=== PATIENT | female | born 1990 | race African-American/Black ===

== ENCOUNTER 2019-02-19 02:33 | Inpatient (IN) | payer MEDICAID, OTHER ==
[~2019-02-19] VITALS: Ht 165.1 cm; Wt 117.9 kg
[~2019-02-19 02:33] MED LIST: ADVAIR 100-501 EACH INH; ALBUTEROL SULF8.5 GM INH; ALBUTEROL2.5 MG/3 M INH; FUROSEMIDE20 M1 ORAL; IRON159 MG PO; NAPROXEN375 MG ORAL; ONDANSETRON ODT4 MG ORAL; PREDNISONE20 MG ORAL; PREDNISONE50 MG ORAL
[2019-02-19 02:44] VITALS: BP 158/86
[2019-02-19] MEDS: Albuterol ud Inhalation HHN SCH ×3 (02:59→03:30)
[2019-02-19] MEDS: Ipratropium 0.02% Inh Soln 2.5ml UD HHN SCH ×3 (02:59→03:30)
[2019-02-19] MEDS ORDERED: Solu-MEDROL 125mg Inj IVP ONE (03:00)
[2019-02-19 03:30] LABS: HEMATOCRIT 25.4 % (37.0-47.0); HEMOGLOBIN 7.9 G/DL (12.0-16.0); MEAN CORPUSCULAR VOLUME 73 FL (80-99); PLATELET COUNT 243 K/UL (150-450); RED BLOOD COUNT 3.48 M/UL (4.20-5.40); RED CELL DISTRIBUTION WIDTH 18.8 % (11.6-14.8)
[2019-02-19 03:43] LABS: APPEARANCE,URINE CLEAR; BILIRUBIN, URINE NEGATIVE (NEGATIVE); GLUCOSE, URINE (UA) NEGATIVE (NEGATIVE); KETONES,URINE NEGATIVE (NEGATIVE); LEUKOCYTE ESTERASE ,URINE 1+ (NEGATIVE); NITRITE,URINE NEGATIVE (NEGATIVE); PH,URINE 8 (4.5-8.0); PROTEIN,URINE NEGATIVE (NEGATIVE); UROBILINOGEN,URINE 1 MG/DL (0.0-1.0)
[2019-02-19 03:50] LABS: COLOR,URINE YELLOW
[2019-02-19 03:56] LABS: ANION GAP 10 mmol/L (5-15); BLOOD UREA NITROGEN 5 mg/dL (7-18); CALCIUM 8.2 MG/DL (8.5-10.1); CARBON DIOXIDE 27 MMOL/L (21-32); CHLORIDE 104 MMOL/L (98-107); CREATININE 0.8 MG/DL (0.55-1.30); POTASSIUM 4.1 MMOL/L (3.5-5.1); SODIUM 141 MMOL/L (136-145)
[2019-02-19 04:09] LABS: ALANINE AMINOTRANSFERASE 29 U/L (12-78); ALBUMIN 2.9 G/DL (3.4-5.0); ALBUMIN/GLOBULIN RATIO 0.8 (1.0-2.7); ALKALINE PHOSPHATASE 89 U/L (46-116); ASPARTATE AMINO TRANSFERASE 29 U/L (15-37); BILIRUBIN,TOTAL 0.7 MG/DL (0.2-1.0)
--- NOTE | 2019-02-19 04:12 | Emergency Room Report ---
History of Present Illness General Chief Complaint: Asthma Source: Patient Present Illness HPI 29-year-old female presents to ED complaining of wheezing and shortness of breath for the last 3 hours. History of asthma. States her inhaler is not helping. Also notes leg swelling 1 day. States she has history of CHF and takes Lasix. Denies fevers or chills. Denies chest pain. No other aggravating relieving factors. Denies any other associated symptoms Allergies: Coded Allergies: No Known Allergies (Unverified , 09/26/13) Patient History Past Medical History: HTN, CHF, asthma Past Surgical History: none Pertinent Family History: none Social History: Denies: smoking, alcohol use, drug use Last Menstrual Period: Feb 04 2019 Now: No Immunizations: UTD Reviewed Nursing Documentation: PMH: Agreed; PSxH: Agreed Nursing Documentation-PMH Hx Hypertension: Yes Hx Asthma: Yes Review of Systems All Other Systems: negative except mentioned in HPI Physical Exam Vital Signs Date Time Temp Pulse Resp B/P (MAP) Pulse Ox O2 Delivery O2 Flow Rate FiO2 02/19/19 02:38 99.1 104 22 158/86 99 Room Air 02/19/19 03:00 21 Sp02 EP Interpretation: reviewed, normal General Appearance: alert, GCS 15, non-toxic, mild distress, obese Head: normocephalic, atraumatic Eyes: bilateral eye normal inspection, bilateral eye PERRL ENT: hearing grossly normal, normal pharynx, no angioedema, normal voice Neck: full range of motion, supple/symm/no masses Respiratory: chest non-tender, normal breath sounds, speaking full sentences, wheezing Cardiovascular #1: regular rate, rhythm, no edema Cardiovascular #2: 2+ carotid (R), 2+ carotid (L), 2+ radial (R), 2+ radial (L) , 2+ dorsalis pedis (R), 2+ dorsalis pedis (L) Gastrointestinal: normal bowel sounds, non tender, soft, non-distended, no guarding, no rebound Rectal: deferred Genitourinary: normal inspection, no CVA tenderness Musculoskeletal: back normal, gait/station normal, normal range of motion, swelling - 2+ pitting edema b/l LEs Neurologic: alert, oriented x3, responsive, motor strength/tone normal, sensory intact, speech normal Psychiatric: judgement/insight normal, memory normal, mood/affect normal, no suicidal/homicidal ideation Reflexes: 3+ bicep (R), 3+ bicep (L), 3+ tricep (R), 3+ tricep (L), 3+ knee (R) , 3+ knee (L) Skin: normal color, no rash, warm/dry, well hydrated Lymphatic: no adenopathy Medical Decision Making Diagnostic Impression: Primary Impression: Asthma exacerbation Qualified Codes: J45.901 - Unspecified asthma with (acute) exacerbation Additional Impressions: CHF exacerbation Qualified Codes: I50.9 - Heart failure, unspecified Hypertension Qualified Codes: I10 - Essential (primary) hypertension ER Course Hospital Course 29-year-old female presents ED complaining of leg swelling and shortness of breath with wheezing. History of asthma and CHF Differential diagnoses include: NC/unstable angina, pneumonia, CHF Clinical course Patient placed on stretcher. on cardiac/vascular sonographer. After initial history and physical I ordered labs, EKG, chest x-ray, nebulizer treatments, solumedrol labs reviewed- no leukocytosis, hemoglobin/hematocrit stable, electrolytes ok, trop negative, BNP elevated EKG - NSR no acute ischemic changes interpreted by me Chest x-ray- cardiomegaly, interstitial congestion On reassessment patient states wheezing is somewhat improved but still feels short of breath. Likely component of CHF as well. Patient has pronounced leg swelling despite being on Lasix. Blood pressure also elevated. Given clonidine. Given Lasix. Given magnesium. Patient will be admitted to Dr. Jimy Luis. I feel this is a highly complex case requiring extensive working including EKG/Rhythm strip, Xray/CT/US, Blood/urine lab work, repeat exams while in ED, and administration of strong opiates/narcotics for pain control, admission to hospital or close patient follow up. Diagnosis - asthma exacerbation,CHF exacerbation, hypertension admitted to telemetry in serious condition Labs Test 02/19/19 03:20 White Blood Count 9.0 K/UL (4.8-10.8) Red Blood Count 3.48 M/UL (4.20-5.40) Hemoglobin 7.9 G/DL (12.0-16.0) Hematocrit 25.4 % (37.0-47.0) Mean Corpuscular Volume 73 FL (80-99) Mean Corpuscular Hemoglobin 22.8 PG (27.0-31.0) Mean Corpuscular Hemoglobin Concent 31.2 G/DL (32.0-36.0) Red Cell Distribution Width 18.8 % (11.6-14.8) Platelet Count 243 K/UL (150-450) Mean Platelet Volume 9.0 FL (6.5-10.1) Neutrophils (%) (Auto) % (45.0-75.0) Lymphocytes (%) (Auto) % (20.0-45.0) Monocytes (%) (Auto) % (1.0-10.0) Eosinophils (%) (Auto) % (0.0-3.0) Basophils (%) (Auto) % (0.0-2.0) Urine Color Yellow Urine Appearance Clear Urine pH 8 (4.5-8.0) Urine Specific Glynn 1.015 (1.005-1.035) Urine Protein Negative (NEGATIVE) Urine Glucose (UA) Negative (NEGATIVE) Urine Ketones Negative (NEGATIVE) Urine Blood Negative (NEGATIVE) Urine Nitrite Negative (NEGATIVE) Urine Bilirubin Negative (NEGATIVE) Urine Urobilinogen 1 MG/DL (0.0-1.0) Urine Leukocyte Esterase 1+ (NEGATIVE) Urine RBC 0-2 /HPF (0 - 2) Urine WBC 2-4 /HPF (0 - 2) Urine Squamous Epithelial Cells Few /LPF (NONE/OCC) Urine Bacteria None /HPF (NONE) Sodium Level 141 MMOL/L (136-145) Potassium Level 4.1 MMOL/L (3.5-5.1) Chloride Level 104 MMOL/L (98-107) Carbon Dioxide Level 27 MMOL/L (21-32) Anion Gap 10 mmol/L (5-15) Blood Urea Nitrogen 5 mg/dL (7-18) Creatinine 0.8 MG/DL (0.55-1.30) Estimat Glomerular Filtration Rate > 60 mL/min (>60) Glucose Level 100 MG/DL (74-106) Calcium Level 8.2 MG/DL (8.5-10.1) Total Bilirubin 0.7 MG/DL (0.2-1.0) Aspartate Amino Transf (AST/SGOT) 29 U/L (15-37) Alanine Aminotransferase (ALT/SGPT) 29 U/L (12-78) Alkaline Phosphatase 89 U/L (46-116) Troponin I 0.010 ng/mL (0.000-0.056) Pro-B-Type Natriuretic Peptide 138 pg/mL (0-125) Total Protein 6.7 G/DL (6.4-8.2) Albumin 2.9 G/DL (3.4-5.0) Globulin 3.8 g/dL Albumin/Globulin Ratio 0.8 (1.0-2.7) EKG Diagnostic Results Rate: normal Rhythm: NSR ST Segments: no acute changes ASA given to the pt in ED: No Rhythm Strip Diag. Results EP Interpretation: yes Rhythm: NSR, no PVC's, no ectopy Chest X-Ray Diagnostic Results Chest X-Ray Diagnostic Results : Chest X-Ray Ordered: Yes # of Views/Limited/Complete: 1 View Indication: Shortness of Breath EP Interpretation: Yes Interpretation: no pneumothorax, other - cardiomegaly. mild interstitial congestion Impression: Other - chf Electronically Signed by: Electronically signed by Toni Mcgregor MD Last Vital Signs Date Time Temp Pulse Resp B/P (MAP) Pulse Ox O2 Delivery O2 Flow Rate FiO2 02/19/19 03:45 87 18 100 02/19/19 03:00 Room Air 21 02/19/19 02:44 99.1 158/86 Status: improved Disposition: ADMITTED INPATIENT Condition: Serious Referrals: NON PHYSICIAN (PCP) Toni Mcgregor MD Feb 19, 2019 04:12
[2019-02-19] MEDS ORDERED: cloNIDine 0.2mg Tab ORAL ONE (04:30)
[2019-02-19 05:26] VITALS: BP 156/99
[2019-02-19 08:00] VITALS: BP 123/58
[2019-02-19] MEDS: Heparin 5000 units/ml inj SUBQ SCH ×2 (09:00→21:08)
[2019-02-19] MEDS: Albuterol/Ipratropium 3ml neb HHN SCH ×5 (11:00→23:28)
--- NOTE | 2019-02-19 11:46 | Diagnostic Imaging Report ---
Indication: Shortness of breath Technique: XRAY Chest 1v Comparison: 05/10/2016 Findings: Heart is enlarged. Mediastinal contours are sharp. There is haziness of the pulmonary vascularity is single mild congestive changes/interstitial edema. No definite focal airspace consolidation. No pleural effusion or pneumothorax. No acute osseous abnormality. Impression: Cardiomegaly and haziness of the pulmonary vascularity suggesting mild congestive changes/interstitial edema. This corresponds with the preliminary interpretation of the treating ER physician, as documented in the electronic medical record.
[2019-02-19 12:00] VITALS: BP 125/75
[2019-02-19] MEDS: Solu-MEDROL 125mg Inj IVP SCH ×2 (13:57→21:02)
[2019-02-19 15:56] LABS: HEMATOCRIT 28.8 % (37.0-47.0); HEMOGLOBIN 8.8 G/DL (12.0-16.0); MEAN CORPUSCULAR VOLUME 73 FL (80-99); PLATELET COUNT 459 K/UL (150-450); RED BLOOD COUNT 3.96 M/UL (4.20-5.40); RED CELL DISTRIBUTION WIDTH 18.2 % (11.6-14.8); WHITE BLOOD COUNT 10.2 K/UL (4.8-10.8)
[2019-02-19 16:00] VITALS: BP 118/71
--- NOTE | 2019-02-19 18:45 | History and Physical Report ---
DATE OF ADMISSION: 02/19/2019 CHIEF COMPLAINT: Shortness of breath. HISTORY OF PRESENT ILLNESS: The patient is a 29-year-old female. She has a history of asthma, hypertension, sleep apnea, and congestive heart failure. She presented with complaints of one day of shortness of breath. According to the patient, she has had worsening wheezing and dyspnea on exertion. She has also noted worsened lower extremity edema. A year ago, she was apparently admitted to an outside hospital where she was told she had congestive heart failure. On evaluation in the emergency room, she was noted to be wheezing. She had x-ray evidence for congestive heart failure. She received Lasix, clonidine, and breathing treatments. She is now admitted for further evaluation and care. PAST MEDICAL HISTORY: As above. PAST SURGICAL HISTORY: None. CURRENT MEDICATIONS: Reconciled and reviewed. ALLERGIES: None. FAMILY HISTORY: Significant for heart failure. SOCIAL HISTORY: Negative for tobacco, ethanol, or drugs. REVIEW OF SYSTEMS: GENERAL: No fever or chills. HEENT: No headaches or visual changes. CARDIOPULMONARY: No chest pain. Positive shortness of breath. Positive lower extremity edema. GASTROINTESTINAL: No nausea or vomiting. GENITOURINARY: No urgency or frequency. MUSCULOSKELETAL: Positive lower extremity pain and swelling. NEUROLOGIC: No history of seizures. PHYSICAL EXAMINATION: VITAL SIGNS: Temperature 98.6, pulse 98, respirations 18, and blood pressure 156/99. GENERAL: The patient is well-developed, in no apparent distress. HEART: Regular rate and rhythm. LUNGS: Significant for bilateral wheezes. ABDOMEN: Soft, nontender, and nondistended. EXTREMITIES: Significant for 3+ pitting edema. LABORATORY AND DIAGNOSTIC DATA: Chest x-ray showed cardiomegaly and congestive heart failure. White count 9, hemoglobin 8, hematocrit 25, and platelets of 243,000. Sodium 141, potassium was 4. Troponin is 0.01. Natriuretic peptide was 138. Urine was clear. EKG showed sinus rhythm without any acute ST-T wave changes. ASSESSMENT: This is a pleasant female with a history of asthma, congestive heart failure, chronic anemia, and sleep apnea, admitted with complaints of shortness of breath secondary to asthma exacerbation and CHF. 1. Asthma exacerbation. 2. CHF. 3. Hypertension. 4. Sleep apnea. 5. History of chronic anemia. PLAN: IV steroids and respiratory treatments [id number]. Intravenous Lasix. Check an echo. Check a venous duplex. Cardiology and Pulmonary consultations. Check an iron panel. DVT and stress ulcer prophylaxis will also be instituted. Jordi Ahn M.D. DR: BENJY JOB#: [id number] CC:
[2019-02-19 20:00] VITALS: BP 119/79
[2019-02-20] VITALS: BP 149/98
--- NOTE | 2019-02-20 02:00 | Consultation ---
DATE OF CONSULTATION: 02/19/2019 CARDIOLOGY CONSULTATION CONSULTING PHYSICIAN: Tristen Sena M.D. REFERRING PHYSICIAN: Jordi Ahn M.D. REASON FOR CONSULT: Congestive heart failure. HISTORY OF PRESENT ILLNESS: This is a 29-year-old female. She has a history of asthma and apparently congestive heart failure in the past. She presented to the emergency room complaining of one day of progressive shortness of breath, wheezing, and some leg swelling. She notes a similar episode about a year ago at an outside hospital where she was told that she had congestive heart failure. In the emergency room radiographic evidence of mild congestive heart failure was noted with mildly elevated pro-natriuretic peptide assay of 138. Troponin levels were negative. PAST MEDICAL HISTORY: Includes sleep apnea, asthma, and hypertension with history of congestive heart failure. ALLERGIES: None. FAMILY HISTORY: Notable for heart failure in parents. MEDICATIONS: Reviewed and reconciled. SOCIAL HISTORY: She denies smoking, alcohol, or substance abuse. REVIEW OF SYSTEMS: She has had some lower extremity pain and swelling. There is no history of diabetes or thyroid impairment. There is no history of blood clotting. She has not noted any bleeding from her rectum. She does have menses regularly. PHYSICAL EXAMINATION: VITAL SIGNS: Blood pressure 156/99, pulse 98, and respirations 18. Afebrile. NECK: Supple. Jugular venous pressure is slightly elevated. LUNGS: With bilateral wheezes. CARDIAC: Regular rhythm and rate. Normal S1, S2 with no murmur. ABDOMEN: Soft. EXTREMITIES: With 3+ pitting edema. LABORATORY DATA: Hemoglobin is 7.9. Chemistry panel within normal limits. EKG with sinus rhythm. No acute ST-T wave abnormalities. Venous duplex scan of lower extremities was negative for any DVT. IMPRESSION: 1. Acute bronchospasm. 2. Acute diastolic congestive heart failure, likely due to high output state. 3. Severe anemia. 4. History of sleep apnea. PLAN: 1. Cautious diuresis. 2. Consider packed red blood cell transfusion. 3. Check iron panel. 4. DVT prophylaxis. 5. Echocardiogram. 6. Further recommendations to follow. Tristen Sena M.D. : FRANCINE JOB#: [id number] CC:
[2019-02-20] MEDS: Albuterol/Ipratropium 3ml neb HHN SCH ×6 (03:22→22:51)
[2019-02-20 04:00] VITALS: BP 153/88
[2019-02-20] MEDS: Solu-MEDROL 125mg Inj IVP SCH ×3 (05:41→21:19)
[2019-02-20 06:41] LABS: ANION GAP 6 mmol/L (5-15); BLOOD UREA NITROGEN 8 mg/dL (7-18); CALCIUM 8.4 MG/DL (8.5-10.1); CARBON DIOXIDE 30 MMOL/L (21-32); CHLORIDE 105 MMOL/L (98-107); CREATININE 0.8 MG/DL (0.55-1.30); POTASSIUM 4.2 MMOL/L (3.5-5.1); SODIUM 140 MMOL/L (136-145)
[2019-02-20 07:09] LABS: % IRON SATURATION 3 % (15-50); IRON 14 ug/dL (50-175); TOTAL IRON BINDING CAPACITY 425 ug/dL (250-450)
[2019-02-20 08:00] VITALS: BP 151/95
--- NOTE | 2019-02-20 08:33 | General Progress Note ---
Assessment/Plan Problem List: (1) Asthma exacerbation (2) dependent edema (3) morbid obesity (4) Asthma attack ICD Codes: J45.909 - Unspecified asthma, uncomplicated SNOMED: 936758371 (5) CHF exacerbation ICD Codes: I50.9 - Heart failure, unspecified SNOMED: 96959537 Qualifiers: Qualified Codes: I50.9 - Heart failure, unspecified Status: stable Plan: cont current rx diuresis resp care o2 mobilize Subjective ROS Limited/Unobtainable: No Constitutional: Reports: malaise, weakness HEENT: Reports: no symptoms Cardiovascular: Reports: no symptoms Respiratory: Reports: SOB with excertion Gastrointestinal/Abdominal: Reports: no symptoms Genitourinary: Reports: no symptoms Neurologic/Psychiatric: Reports: no symptoms Endocrine: Reports: no symptoms Hematologic/Lymphatic: Reports: no symptoms Allergies: Coded Allergies: No Known Allergies (Unverified , 09/26/13) All Systems: reviewed and negative except above Subjective still sob. especially with exertion Objective Last 24 Hour Vital Signs Date Time Temp Pulse Resp B/P (MAP) Pulse Ox O2 Delivery O2 Flow Rate FiO2 02/20/19 07:18 93 16 99 Room Air 21 02/20/19 07:08 82 15 94 Room Air 02/20/19 04:00 98.0 90 20 153/88 (109) 93 02/20/19 04:00 95 02/20/19 03:28 98 16 99 Room Air 21 02/20/19 03:20 96 16 93 Room Air 21 02/20/19 00:00 98.6 91 20 149/98 (115) 96 02/20/19 00:00 92 02/19/19 23:38 96 18 99 Room Air 21 02/19/19 23:28 96 18 94 Room Air 21 02/19/19 21:00 Room Air 02/19/19 20:00 88 02/19/19 20:00 99.0 102 20 119/79 (92) 93 02/19/19 19:11 95 18 99 Room Air 21 02/19/19 19:01 94 18 96 Room Air 21 02/19/19 16:00 98.2 100 20 118/71 (87) 94 02/19/19 16:00 98 02/19/19 14:27 96 18 99 Room Air 21 02/19/19 14:16 97 18 100 Room Air 02/19/19 12:20 94 18 99 Room Air 21 02/19/19 12:12 94 18 100 Room Air 02/19/19 12:00 104 02/19/19 12:00 98.2 96 18 125/75 (92) 96 02/19/19 09:00 Room Air Intake and Output 02/19/19 02/20/19 19:00 07:00 Intake Total 700 ml Output Total 1200 ml Balance -500 ml Intake Oral 700 ml Output Urine Total 1200 ml # Voids 1 Laboratory Tests 02/19/19 15:15: White Blood Count 10.2, Red Blood Count 3.96L, Hemoglobin 8.8L, Hematocrit 28.8L , Mean Corpuscular Volume 73L, Mean Corpuscular Hemoglobin 22.2L, Mean Corpuscular Hemoglobin Concent 30.5L, Red Cell Distribution Width 18.2H, Platelet Count 459#H, Mean Platelet Volume 7.6, Neutrophils (%) (Auto) , Lymphocytes (%) (Auto) , Monocytes (%) (Auto) , Eosinophils (%) (Auto) , Basophils (%) (Auto) , Differential Total Cells Counted 100, Neutrophils % ( Manual) 95H, Lymphocytes % (Manual) 3L, Monocytes % (Manual) 2, Eosinophils % ( Manual) 0, Basophils % (Manual) 0, Band Neutrophils 0, Platelet Estimate IncreasedH, Platelet Morphology Normal, Hypochromasia 1+, Anisocytosis 1+ 02/20/19 05:45: Sodium Level 140, Potassium Level 4.2, Chloride Level 105, Carbon Dioxide Level 30, Anion Gap 6, Blood Urea Nitrogen 8, Creatinine 0.8, Estimat Glomerular Filtration Rate > 60, Glucose Level 191H, Calcium Level 8.4L, Iron Level 14L, Total Iron Binding Capacity 425, Percent Iron Saturation 3L, Unsaturated Iron Binding 411H, Pro-B-Type Natriuretic Peptide 384H, Thyroid Stimulating Hormone ( TSH) 0.369 Height (Feet): 5 Height (Inches): 5.00 Weight (Pounds): 260 General Appearance: WD/WN, alert Neck: supple Cardiovascular: regular rhythm Respiratory/Chest: lungs clear, normal breath sounds Abdomen: normal bowel sounds, non tender, soft, no organomegaly Edema: no edema noted Arm (L), no edema noted Arm (R), no edema noted Leg (L), no edema noted Leg (R), no edema noted Pedal (L), no edema noted Pedal (R), no edema noted Generalized Jordi Ahn MD Feb 20, 2019 08:33
[2019-02-20] MEDS: Heparin 5000 units/ml inj SUBQ SCH ×2 (08:49→21:12)
[2019-02-20 12:00] VITALS: BP 134/84
[2019-02-20] MEDS ORDERED: Lisinopril 20mg tab ORAL SCH (15:40)
[2019-02-20 16:00] VITALS: BP 122/94
[2019-02-20 20:00] VITALS: BP 163/98
[2019-02-20] MEDS: Iron Sucrose 100 MG in NS 55 ML IV SCH (21:14)
[2019-02-21] VITALS: BP 149/97
[2019-02-21] MEDS: Albuterol/Ipratropium 3ml neb HHN SCH ×6 (03:18→22:59)
[2019-02-21 04:00] VITALS: BP 161/93
[2019-02-21] MEDS: Solu-MEDROL 125mg Inj IVP SCH ×2 (05:56→13:15)
[2019-02-21 08:00] VITALS: BP 163/113
[2019-02-21] MEDS ORDERED: Lisinopril 20mg tab ORAL SCH (09:00)
[2019-02-21] MEDS: Heparin 5000 units/ml inj SUBQ SCH ×2 (09:02→21:08)
[2019-02-21 12:00] VITALS: BP 153/105
--- NOTE | 2019-02-21 14:45 | General Progress Note ---
Assessment/Plan Problem List: (1) Asthma exacerbation (2) dependent edema (3) morbid obesity (4) Asthma attack ICD Codes: J45.909 - Unspecified asthma, uncomplicated SNOMED: [id number] (5) CHF exacerbation ICD Codes: I50.9 - Heart failure, unspecified SNOMED: 11304707 Qualifiers: Qualified Codes: I50.9 - Heart failure, unspecified Status: stable, progressing Assessment: copd exac chf exac htn- uncontrolled. Plan: wean steroids resp rx o2 iv diuresis monitor labs Subjective ROS Limited/Unobtainable: No Constitutional: Reports: malaise, weakness HEENT: Reports: no symptoms Cardiovascular: Reports: no symptoms Respiratory: Reports: cough, shortness of breath Gastrointestinal/Abdominal: Reports: no symptoms Genitourinary: Reports: no symptoms Neurologic/Psychiatric: Reports: no symptoms Endocrine: Reports: no symptoms Hematologic/Lymphatic: Reports: no symptoms Allergies: Coded Allergies: No Known Allergies (Unverified , 09/26/13) All Systems: reviewed and negative except above Subjective still sob. +wheezing. remains on steroids and iv lasix. Objective Last 24 Hour Vital Signs Date Time Temp Pulse Resp B/P (MAP) Pulse Ox O2 Delivery O2 Flow Rate FiO2 02/21/19 12:00 96 02/21/19 12:00 84 20 99 Room Air 21 02/21/19 12:00 98.3 79 20 153/105 (121) 93 02/21/19 11:45 76 22 99 Room Air 21 02/21/19 09:01 163/113 02/21/19 09:00 Room Air 02/21/19 08:00 98.1 95 18 163/113 (130) 94 02/21/19 08:00 98 02/21/19 07:34 84 20 99 Room Air 21 02/21/19 07:20 74 22 99 Room Air 21 02/21/19 07:20 74 20 Room Air 21 02/21/19 04:00 98.3 76 16 161/93 (115) 93 02/21/19 04:00 87 02/21/19 03:28 75 20 99 Room Air 21 02/21/19 03:20 70 20 Room Air 21 02/21/19 03:18 70 20 99 Room Air 21 02/21/19 00:00 98.0 86 18 149/97 (114) 95 02/21/19 00:00 83 02/20/19 23:14 78 20 Room Air 21 02/20/19 22:58 74 20 99 Room Air 21 02/20/19 22:48 79 20 97 Room Air 21 02/20/19 21:00 Room Air 02/20/19 20:00 97.7 91 20 163/98 (119) 97 02/20/19 20:00 91 02/20/19 19:33 80 20 99 Room Air 21 02/20/19 19:26 101 20 94 Room Air 21 02/20/19 16:47 152/94 02/20/19 16:00 84 02/20/19 16:00 98.1 86 18 122/94 (103) 100 02/20/19 15:37 84 20 99 Room Air 21 02/20/19 15:27 99 20 93 Room Air 21 Intake and Output 02/20/19 02/21/19 19:00 07:00 Intake Total 1290 ml 118 ml Balance 1290 ml 118 ml Intake Oral 1290 ml 118 ml # Voids 4 6 Height (Feet): 5 Height (Inches): 5.00 Weight (Pounds): 260 Objective General Appearance: WD/WN, alert Neck: supple Cardiovascular: regular rhythm Respiratory/Chest: lungs clear, normal breath sounds Abdomen: normal bowel sounds, non tender, soft, no organomegaly Edema: no edema noted Arm (L), no edema noted Arm (R), no edema noted Leg (L), no edema noted Leg (R), no edema noted Pedal (L), no edema noted Pedal (R), no edema noted Generalized Jordi Ahn MD Feb 21, 2019 14:45
[2019-02-21 16:00] VITALS: BP 189/99
[2019-02-21 20:00] VITALS: BP 168/101
[2019-02-21] MEDS ORDERED: Solu-MEDROL 125mg Inj IVP SCH (21:00)
--- NOTE | 2019-02-21 21:01 | Progress Note ---
DATE: 02/21/2019 CARDIOLOGY PROGRESS NOTE SUBJECTIVE: Blood pressure parameters remain elevated. Urine tox screen is negative. Exam is essentially unchanged. IMPRESSION: 1. Asthma exacerbation. 2. Acute diastolic congestive heart failure. 3. Severe iron deficiency with anemia. 4. Hypertensive heart disease with uncontrolled blood pressure. PLAN: 1. Steroid taper. 2. Ongoing diuresis. 3. Advance antihypertensive regimen. Tristen Sena M.D. DR: JORGE JOB#: [id number] CC:
--- NOTE | 2019-02-21 21:01 | Progress Note ---
DATE: 02/20/2019 CARDIOLOGY PROGRESS NOTE. Late entry for February 20, 2019 SUBJECTIVE: The patient is seen in bed, lying flat, no shortness of breath. OBJECTIVE: VITAL SIGNS: Blood pressure 153/88, pulse 90, respiratory rate 20. No fevers. NECK: Obese neck. Unable to assess jugular venous pressure. LUNGS: Diminished breath sounds. No audible rales. HEART: Regular rhythm and rate. Normal S1 and S2 with no murmur. Heart sounds are distant. ABDOMEN: Obese. EXTREMITIES: With 2 to 3+ edema. LABORATORY AND DIAGNOSTIC DATA: Echocardiogram revealed normal ejection fraction and no pulmonary hypertension. Sodium 140, potassium 4.2, BUN 8, creatinine 0.8. Iron saturation is only 3%. Natriuretic peptide 384. TSH 0.37. IMPRESSION: 1. Acute diastolic congestive heart failure. 2. Iron-deficiency anemia. 3. Lymphedema. PLAN: 1. Diuresis. 2. I agree with IV iron. 3. Review venous duplex scan. Tristen Sena M.D. DR: Thania JOB#: [id number] CC:
[2019-02-21] MEDS: Iron Sucrose 100 MG in NS 55 ML IV SCH (21:04)
[2019-02-22] VITALS: BP 155/104
[2019-02-22] MEDS: Albuterol/Ipratropium 3ml neb HHN SCH ×6 (03:04→23:40)
[2019-02-22 04:00] VITALS: BP 160/102
[2019-02-22 08:11] VITALS: BP 146/74
--- NOTE | 2019-02-22 08:11 | General Progress Note ---
Assessment/Plan Problem List: (1) Asthma exacerbation (2) dependent edema (3) morbid obesity (4) Asthma attack ICD Codes: J45.909 - Unspecified asthma, uncomplicated SNOMED: 143892097 (5) CHF exacerbation ICD Codes: I50.9 - Heart failure, unspecified SNOMED: 93554622 Qualifiers: Qualified Codes: I50.9 - Heart failure, unspecified Assessment: copd exac chf exac htn- uncontrolled. Plan: cont current rx check cxr iv lasix wean steroids monitor bp. adjust bp meds as needed Subjective ROS Limited/Unobtainable: No Constitutional: Reports: malaise, weakness HEENT: Reports: no symptoms Cardiovascular: Reports: no symptoms Respiratory: Reports: no symptoms Gastrointestinal/Abdominal: Reports: no symptoms Genitourinary: Reports: no symptoms Neurologic/Psychiatric: Reports: no symptoms Endocrine: Reports: no symptoms Hematologic/Lymphatic: Reports: no symptoms Allergies: Coded Allergies: No Known Allergies (Unverified , 09/26/13) All Systems: reviewed and negative except above Subjective still sob. +wheezing. remains on steroids and iv lasix. BP still high. BP meds uptitrated yesterday. Objective Last 24 Hour Vital Signs Date Time Temp Pulse Resp B/P (MAP) Pulse Ox O2 Delivery O2 Flow Rate FiO2 02/22/19 05:03 160/102 02/22/19 04:00 98.2 83 18 160/102 (121) 98 02/22/19 04:00 80 02/22/19 03:15 78 18 99 Room Air 21 02/22/19 03:07 78 18 94 Room Air 21 02/22/19 00:00 98.4 90 18 155/104 (121) 96 02/22/19 00:00 90 02/21/19 23:10 78 18 96 Room Air 21 02/21/19 22:59 73 18 94 Room Air 21 02/21/19 21:20 168/101 02/21/19 21:00 Room Air 02/21/19 20:00 87 02/21/19 20:00 97.8 93 18 168/101 (123) 94 02/21/19 19:21 75 20 99 Room Air 21 02/21/19 19:12 82 18 Room Air 21 02/21/19 19:10 81 20 96 Room Air 21 02/21/19 18:08 74 189/99 02/21/19 16:00 74 02/21/19 16:00 99.1 85 20 189/99 (129) 93 02/21/19 15:44 82 20 99 Room Air 21 02/21/19 15:34 79 20 99 Room Air 21 02/21/19 12:00 96 02/21/19 12:00 84 20 99 Room Air 21 02/21/19 12:00 98.3 79 20 153/105 (121) 93 02/21/19 11:45 76 22 99 Room Air 21 02/21/19 09:01 163/113 02/21/19 09:00 Room Air Intake and Output 02/21/19 02/22/19 18:59 06:59 Intake Total 1000 ml 3 ml Balance 1000 ml 3 ml Intake Oral 1000 ml Other 3 ml Height (Feet): 5 Height (Inches): 5.00 Weight (Pounds): 260 Objective General Appearance: WD/WN, alert Neck: supple Cardiovascular: regular rhythm Respiratory/Chest: lungs clear, normal breath sounds Abdomen: normal bowel sounds, non tender, soft, no organomegaly Edema: no edema noted Arm (L), no edema noted Arm (R), no edema noted Leg (L), no edema noted Leg (R), no edema noted Pedal (L), no edema noted Pedal (R), no edema noted Generalized Jordi Ahn MD Feb 22, 2019 08:11
--- NOTE | 2019-02-22 08:51 | Diagnostic Imaging Report ---
EXAM: XR Chest, 1 View CLINICAL HISTORY: SOB TECHNIQUE: Frontal view of the chest. COMPARISON: Chest x-ray, 02/19/19 321 FINDINGS: Lungs: Hypoventilatory lungs. Mild bibasilar lung atelectasis. Mild vascular/interstitial prominence, not significantly changed. Pleural space: Unremarkable. No pneumothorax. Heart: Cardiomegaly. Mediastinum: Unremarkable. Bones/joints: Unremarkable. IMPRESSION: Cardiomegaly. Hypoventilatory lungs. Mild bibasilar lung atelectasis. Mild vascular/interstitial prominence, not significantly changed.
[2019-02-22] MEDS ORDERED: Solu-MEDROL 125mg Inj IVP SCH (09:00)
[2019-02-22] MEDS: Lisinopril 20mg tab ORAL SCH (09:21)
[2019-02-22] MEDS: Heparin 5000 units/ml inj SUBQ SCH ×2 (09:23→20:46)
[2019-02-22 12:12] VITALS: BP 171/111
[2019-02-22 16:00] VITALS: BP 166/106
[2019-02-22 20:00] VITALS: BP 163/102
[2019-02-22] MEDS: Iron Sucrose 100 MG in NS 55 ML IV SCH (20:24)
[2019-02-23] VITALS: BP 157/100
--- NOTE | 2019-02-23 02:15 | Progress Note ---
CARDIOLOGY PROGRESS NOTE DATE: 02/22/2019 SUBJECTIVE: The patient still feels short of breath with activity, but is improved. Intake and output does not appear to be accurate, but is also not negative. OBJECTIVE: VITAL SIGNS: Blood pressure remains elevated 160/102, pulse 83, and respirations 18. LUNGS: With bilateral breath sounds. Few rales. CARDIAC: Regular rhythm and rate. Normal S1, S2 with a fourth heart sound. ABDOMEN: Soft. EXTREMITIES: 1+ dependent edema. IMPRESSION: 1. Acute diastolic congestive heart failure. 2. Anemia. 3. Menometrorrhagia. 4. Iron deficiency. 5. Asthma exacerbation. PLAN: 1. Labs will be rechecked. 2. Continuing diuresis, may need to advance furosemide dosing. 3. Continue iron replacement. 4. Maximize antihypertensive therapy. 5. Outpatient gynecology followup is already scheduled. Tristen Sena M.D. DR: FRANCINE JOB#: [id number] CC:
[2019-02-23] MEDS: Albuterol/Ipratropium 3ml neb HHN SCH ×3 (02:19→11:10)
[2019-02-23 04:00] VITALS: BP 138/91
[2019-02-23 07:41] LABS: BASOPHILS % (AUTO) 0.5 % (0.0-2.0); EOSINOPHILS % (AUTO) 0.1 % (0.0-3.0); HEMATOCRIT 35.3 % (37.0-47.0); HEMOGLOBIN 10.8 G/DL (12.0-16.0); LYMPHOCYTES % (AUTO) 20.6 % (20.0-45.0); MEAN CORPUSCULAR VOLUME 74 FL (80-99); MONOCYTES % (AUTO) 8.6 % (1.0-10.0); NEUTROPHILS % (AUTO) 70.2 % (45.0-75.0); PLATELET COUNT 513 K/UL (150-450); RED CELL DISTRIBUTION WIDTH 18.7 % (11.6-14.8); WHITE BLOOD COUNT 14.3 K/UL (4.8-10.8)
[2019-02-23 08:00] VITALS: BP 126/76
[2019-02-23] MEDS ORDERED: NORVASC10 MG ORAL (08:03)
[2019-02-23] MEDS ORDERED: PRINIVIL20 MG ORAL (08:03)
[2019-02-23] MEDS ORDERED: BREO ELLIPTA 21 EACH IH (08:06)
[2019-02-23 08:07] LABS: ALANINE AMINOTRANSFERASE 26 U/L (12-78); ALBUMIN/GLOBULIN RATIO 0.7 (1.0-2.7); ALKALINE PHOSPHATASE 88 U/L (46-116); ANION GAP 3 mmol/L (5-15); ASPARTATE AMINO TRANSFERASE 9 U/L (15-37); BILIRUBIN,TOTAL 0.5 MG/DL (0.2-1.0); BLOOD UREA NITROGEN 14 mg/dL (7-18); CALCIUM 9.1 MG/DL (8.5-10.1); CARBON DIOXIDE 37 MMOL/L (21-32); CHLORIDE 102 MMOL/L (98-107); CREATININE 0.9 MG/DL (0.55-1.30); POTASSIUM 3.4 MMOL/L (3.5-5.1); SODIUM 142 MMOL/L (136-145)
[2019-02-23] MEDS: Lisinopril 20mg tab ORAL SCH (08:54)
[2019-02-23] MEDS: Heparin 5000 units/ml inj SUBQ SCH (08:55)
[2019-02-23] MEDS ORDERED: Solu-MEDROL 40mg Inj IVP SCH (09:00)
[2019-02-23 12:00] VITALS: BP 130/73
--- NOTE | 2019-02-23 12:02 | Cardiology Report ---
APPROVED REPORT EKG Measurement Heart [id number] 128P [id number] Normal sinus rhythm Right axis deviation Nonspecific ST and T wave abnormality Abnormal ECG
--- NOTE | 2019-02-23 13:05 | Cardiology Report ---
APPROVED REPORT EXAM: Two-dimensional and M-mode echocardiogram with Doppler and color Doppler. M-Mode DIMENSIONS IVSd1.4 (0.7-1.1cm)Left Atrium (MM)3.7 (1.6-4.0cm) LVDd4.5 (3.5-5.6cm)Aortic Root3.1 (2.0-3.7cm) PWd1.6 (0.7-1.1cm)Aortic Cusp Exc.2.2 (1.5-2.0cm) IVSs1.9 cm LVDs2.3 (2.5-4.0cm) PWs2.1 cm Other Information Technically limited study due to pts body habitus. Normal left ventricular chamber size, systolic function and wall motion to extent visualized. Left ventricular ejection fraction estimated to be 70 %. Mild left ventricular hypertrophy. Anterior Echo-free space, may be due to pericardial fat or effusion. Mild left atrial enlargement. Right atrial size at upper limits of normal. Right ventricular chamber size is within normal limits. Mild aortic valve sclerosis with adequate cusp excursion. Mildly thickened mitral valve leaflets with normal excursion. Mitral annulus and aortic root calcification. Pulmonic valve not well visualized. Normal tricuspid valve structure. IVC measured at 2.3 cm without physiologic collapse suggestive of increased RA pressure. A color flow and spectral Doppler study was performed and revealed: Trace aortic regurgitation. Trace mitral regurgitation. Mitral inflow indicates normal left ventricular diastolic function. Trace tricuspid regurgitation. Tricuspid systolic velocities suggests peak right ventricular systolic pressure of 33 mmHg.
--- NOTE | 2019-02-24 00:15 | Discharge Summary ---
DATE OF ADMISSION: 02/21/2019 DATE OF DISCHARGE: 02/23/2019 ADMISSION DIAGNOSES: 1. Asthma exacerbation. 2. Congestive heart failure exacerbation. 3. Uncontrolled hypertension. 4. Obesity. DISCHARGE DIAGNOSES: 1. Asthma exacerbation. 2. Congestive heart failure exacerbation. 3. Uncontrolled hypertension. 4. Obesity. HOSPITAL COURSE: The patient was admitted with complaints of shortness of breath. She was diagnosed with congestive heart failure and asthma exacerbation. She received intravenous steroids and intravenous Lasix. She improved. Her antihypertensive regimen was adjusted. At discharge, she was stable. She will be discharged on a steroid taper. Inhalers were slightly adjusted. FOLLOWUP: She has been asked to follow up in one to two weeks for followup. DISCHARGE MEDICATIONS: Please see discharge medication list for discharge medications. DIET: Cardiac diet. ACTIVITIES: Ad-rupal. Jordi Ahn M.D. DR: DAYAN JOB#: [id number] CC:
--- NOTE | 2019-02-24 01:15 | Progress Note ---
CARDIOLOGY PROGRESS NOTE February 23, 2019 SUBJECTIVE: The patient has less shortness of breath. Able to ambulate. Blood pressure parameters have improved with advanced medication regimen. OBJECTIVE: LUNGS: Clear. CARDIAC: Regular rhythm and rate. Normal S1, S2 with a 1/6 systolic murmur. ABDOMEN: Soft and obese. EXTREMITIES: With nonpitting edema now. LABORATORY DATA: White count 14, hemoglobin 10, potassium 3.4, BUN 14, creatinine 0.9. Natriuretic peptide decreased to 253. IMPRESSION: Improved. PLAN: 1. Continue iron replacement. 2. Maintain current antihypertensive regimen. 3. Additional potassium given. 4. Oral maintenance dose of diuretic was discussed. 5. Outpatient follow up. Tristen Sena M.D. DR: CHAIM JOB#: [id number] CC: MIRIAM
--- NOTE | 2019-03-01 22:58 | Diagnostic Imaging Report ---
APPROVED REPORT CPT Code: 84366 Present Symptoms Comments: Swelling Technically difficult study due to vessel depth (mid-thigh and mid calf area). BILATERAL: Imaging reveals a patent deep venous system bilaterally. There is no evidence of thrombus within the common femoral, mid superficial femoral, popliteal or distal tibial segments. The greater saphenous veins are within normal limits. Doppler indicates normal spontaneous flow within these segments.
== END 2019-02-23 14:52 | disposition home or self-care (01) | DRG 141 ==
LOC: EMR 03:00 → 2E 04:46 → EDBEDREQ 05:02 → 2E 02-20 00:25
DX: J45.901 Unspecified asthma with (acute) exacerbation (principal); I50.33 Acute on chronic diastolic (congestive) heart failure; I11.0 Hypertensive heart disease with heart failure; E66.01 Morbid (severe) obesity due to excess calories; D63.8 Anemia in other chronic diseases classified elsewhere; G47.30 Sleep apnea, unspecified; Z68.41 Body mass index [BMI] 40.0-44.9, adult; D50.9 Iron deficiency anemia, unspecified; I89.0 Lymphedema, not elsewhere classified; N92.1 Excessive and frequent menstruation with irregular cycle
CPT/HCPCS: 36415; 71045; 80048; 80053; 80307; 81003; 83540; 83550; 83735; 83880; 84443; 84484; 85007; 85025; 93005; 93306; 93970; 94640; 94664; 96365; 96366; 96375; 99285; J7620